=== PATIENT | female | born 1950 | race African-American/Black ===

== ENCOUNTER 2023-06-02 09:05 | Emergency (ER) | payer BC ==
[~2023-06-02] VITALS: Ht 175.3 cm; Wt 87.0 kg
[2023-06-02 09:07] VITALS: O2SAT 98
[2023-06-02] MEDS: IBUPROFEN 400MG TABLET PO ONE (09:25)
[2023-06-02] MEDS ORDERED: IBUP-2028 PO (10:06)
[2023-06-02 10:30] VITALS: BP 146/67; PULSE 64; RESP 18; TEMP 98.9
== END 2023-06-02 10:40 | disposition home or self-care (01) ==
LOC: ER 09:05
DX: M25.512 Pain in left shoulder (principal); M54.2 Cervicalgia; M54.9 Dorsalgia, unspecified; E11.9 Type 2 diabetes mellitus without complications; E78.00 Pure hypercholesterolemia, unspecified; Z88.5 Allergy status to narcotic agent; Z88.6 Allergy status to analgesic agent; V89.2XXA Person injured in unspecified motor-vehicle accident, traffic, initial encounter; Y93.89 Activity, other specified; Y92.89 Other specified places as the place of occurrence of the external cause; Y99.8 Other external cause status
CPT/HCPCS: 73030; 99283